=== PATIENT | female | born 1955 | race Caucasian/White ===

== ENCOUNTER → 2021-09-07 | Outpatient (CLI) | payer OTHER ==
[~2021-09-07] MED LIST: ASA81BEC PO; CANDESARTAN-HC1 EAC1 PO; CENTRUM SILVER1 EAC6 PO; MELOXICAM7.5 MG PO; PLEXUS NERVE PO; VITAMIN D3125 MCG PO
== END ==
LOC: LAB 09:04
PROVIDERS: ATTEND Student in an Organized Health Care Education/Training Program
DX: Z20.822 Contact with and (suspected) exposure to COVID-19 (principal)

== ENCOUNTER → 2021-09-08 | Day surgery (SDC) | payer OTHER ==
[~2021-09-08] VITALS: Ht 167.6 cm; Wt 90.3 kg
[2021-09-08 07:53] VITALS: BP 130/77
[2021-09-08 14:59] VITALS: BP 130/77
== END | disposition home or self-care (01) ==
LOC: OR
PROVIDERS: ATTEND Orthopaedic Surgery
DX: M16.11 Unilateral primary osteoarthritis, right hip (principal); M25.551 Pain in right hip; Z98.890 Other specified postprocedural states; Z79.899 Other long term (current) drug therapy; Z90.710 Acquired absence of both cervix and uterus
CPT/HCPCS: 50010; 50101; 50382; 50414; 50855; 52304; 53078; 53368; 56524; 56527; 56528; 57093; 57095; 57103; 57496; 58637; 58959; 62110; 62900; 70005